=== PATIENT | male | born 1940 | race African-American/Black ===

== ENCOUNTER 2016-05-16 02:59 | Emergency (ER) | payer MEDICARE, MEDICAID ==
[~2016-05-16] VITALS: Ht 185.4 cm; Wt 86.0 kg
[~2016-05-16 02:59] MED LIST: GEMF600T3; METF-240; NAPR-217; VALS80TA2
[2016-05-16] MEDS ORDERED: CINA30 PO (03:17)
[2016-05-16] MEDS ORDERED: GABA-290 PO (03:17)
[2016-05-16] MEDS ORDERED: MEGE400O PO (03:17)
[2016-05-16] MEDS ORDERED: AMLO2.5T45 PO (03:17)
[2016-05-16] MEDS ORDERED: TAMS0.4C31 PO (03:17)
[2016-05-16] MEDS ORDERED: HYDR-3933 PO (03:17)
[2016-05-16] MEDS ORDERED: ASPI81TA2 PO (03:17)
[2016-05-16] MEDS ORDERED: IBUP-1510 PO (03:17)
[2016-05-16] MEDS ORDERED: CEPH500C2 PO (03:17)
[2016-05-16] MEDS ORDERED: ACETAMINOPHEN WITH CODEINE 300/30MG TABLET PO STA (03:40)
[2016-05-16 04:02] LABS: INR 1.1; PROTHROMBIN TIME 11.6 sec
[2016-05-16 04:08] LABS: ALANINE AMINOTRANSFERASE 29 IU/L (13-61); ALBUMIN 3.8 g/dL (3.4-5.0); ANION GAP 12; CALCIUM 10.5 mg/dL (8.5-10.1); CARBON DIOXIDE 27 mEq/L (21-32); CHLORIDE 109 mEq/L (98-107); INDEX HEMOLYSI 1 (1-3); INDEX ICTERIC 1 (1-4); INDEX LIPEMIC 1 (1-3); LIPASE 208 IU/L (73-393); UREA NITROGEN BLOOD 17 mg/dL (7-21); eGFR > 60 mL/min (>60)
[2016-05-16 04:19] LABS: BASOPHILS % 0.2 % (0.0-2.0); EOSINOPHILS % 0.8 % (0.0-5.0); HEMATOCRIT. 38.3 % (42.0-52.0); HEMOGLOBIN. 12.5 g/dL (14.0-18.0); LYMPHOCYTES % 9.6 % (20.0-50.0); MEAN CORPUSCULAR HEMOGLOBIN 29.2 pg (28.0-32.0); MEAN CORPUSCULAR HGB CONC 32.7 g/dL (31.0-37.0); MEAN CORPUSCULAR VOLUME 89.3 fL (80.0-94.0); MEAN PLATELET VOLUME 8.3 fl (7.4-10.4); NEUTROPHILS % 82.4 % (40.0-76.0); PLATELET 158 x1000/uL (130-400); RED BLOOD CELL COUNT 4.28 mill/uL (4.7-6.1); RED CELL DISTRIBUTION WIDTH 16.1 % (11.6-14.6); WHITE BLOOD COUNT 6.9 x1000/uL (4.5-11.0)
[2016-05-16 07:31] VITALS: BP 138/76
== END 2016-05-16 07:37 | disposition home or self-care (01) ==
LOC: ER 03:00
DX: R10.33 Periumbilical pain (principal); I10 Essential (primary) hypertension; E78.00 Pure hypercholesterolemia, unspecified; E11.9 Type 2 diabetes mellitus without complications; Z79.82 Long term (current) use of aspirin
CPT/HCPCS: 36415; 80053; 83690; 85025; 85610; 99284